=== PATIENT | female | born 1975 | race Caucasian/White ===

== ENCOUNTER 2018-11-24 12:30 | Emergency (ER) | payer OTHER ==
[2018-11-24] MEDS ORDERED: IBUPROFEN 600 MG TABLET PO ONE (13:03)
[2018-11-24] MEDS ORDERED: METHOCARBAMOL 750 MG TABLET PO ONE (13:04)
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
== END 2018-11-24 13:27 | disposition home or self-care (01) ==
LOC: ER 12:30
DX: M54.9 Dorsalgia, unspecified (principal); R51 Headache; V49.50XA Passenger injured in collision with unspecified motor vehicles in traffic accident, initial encounter
CPT/HCPCS: 99283; J3490